=== PATIENT | female | born 1970 | race Caucasian/White ===

== ENCOUNTER 2019-02-24 10:17 | Emergency (ER) | payer OTHER ==
[~2019-02-24] VITALS: Ht 162.6 cm; Wt 59.0 kg
--- NOTE | 2019-02-24 10:21 | NUR ---
PT IS IN ROOM #2A. DR WILSON EVALUATED THE PT.
[2019-02-24] MEDS ORDERED: IBUPROFEN 800 MG TABLET PO ONE (10:45)
[2019-02-24] MEDS ORDERED: IBUPROFEN 800 MG TABLET ONE (10:49)
--- NOTE | 2019-02-24 11:56 | NUR ---
PT WAS D/C'd TO HOME. D/C INSTRUCTIONS GIVEN TO THE PT.
[2019-02-24 11:58] VITALS: BP 131/68
== END 2019-02-24 11:59 | disposition home or self-care (01) ==
LOC: ER 10:20
DX: S00.83XA Contusion of other part of head, initial encounter (principal); S16.1XXA Strain of muscle, fascia and tendon at neck level, initial encounter; W10.9XXA Fall (on) (from) unspecified stairs and steps, initial encounter; Y93.89 Activity, other specified; Y92.89 Other specified places as the place of occurrence of the external cause; Y99.8 Other external cause status
CPT/HCPCS: 70450; 72125; A4663